=== PATIENT | female | born 1960 | race Two or more races ===

== ENCOUNTER 2020-11-16 02:53 | Inpatient (IN) | payer MEDICARE, MEDICAID ==
[~2020-11-16] VITALS: Ht 160 cm; Wt 90.5 kg
[2020-11-16 04:38] LABS: Basophils # (auto) 0 10 ^3/uL (0-0.2); Basophils % (auto) 0.7 % (0.0-2.0); Eosinophils # (auto) 0.2 10 ^3/uL (0-0.8); Eosinophils % (auto) 2.6 % (0.0-7.0); Hematocrit 31.8 % (36.0-46.0); Hemoglobin 10.7 g/dL (12.2-16.2); Lymphocytes # (auto) 0.8 10 ^3/uL (0.4-5.4); Lymphocytes % (auto) 14.4 % (10.0-50.0); Mean Corpuscular Hemoglobin 30.7 pg (28.0-32.0); Mean Corpuscular Hgb Conc. 33.8 g/dL (32.0-36.0); Mean Corpuscular Volume 90.7 fL (80.0-100.0); Monocytes # (auto) 0.4 10 ^3/uL (0-1.3); Neutrophils # (auto) 4.4 10 ^3/uL (1.6-8.6); Neutrophils % (auto) 75.3 % (37.0-80.0); Red Cell Distribution Width 18.2 % (11.8-14.3); White Blood Cell 5.8 10^3/uL (4.4-10.8)
[2020-11-16 05:07] LABS: Albumin 3.4 g/dL (3.4-5.0); Anion Gap 7 (5-15); Blood Urea Nitrogen 24 mg/dL (7-18); Calcium 7.7 mg/dL (8.5-10.1); Carbon Dioxide 29 mmol/L (21-32); Chloride 99 mmol/L (98-107); Glucose 302 mg/dL (74-106); Magnesium 2.2 mg/dL (1.6-2.6); Potassium 4.2 mmol/L (3.5-5.1); Sodium 135 mmol/L (136-145)
[2020-11-16 05:09] LABS: Alanine Aminotransferase 32 U/L (13-56); Aspartate Aminotransferase 29 U/L (15-37); BUN/Creatinine Ratio 5.8; GFR African American 14 mL/min; GFR Non-African American 12 mL/min
[2020-11-16 05:14] LABS: Alkaline Phosphatase 534 U/L (45-117); Bilirubin, Total 1.6 mg/dL (0.2-1.0); Total Protein 8.4 g/dL (6.4-8.2)
[2020-11-16] MEDS ORDERED: SODIUM CHLORIDE 0.9% 1,000 ML IV ONE (06:45)
[2020-11-16] MEDS ORDERED: ASPirin 81 mg TAB PO ONE (06:45)
[2020-11-16 07:33] LABS: INR 1.04 (0.9-1.15)
[2020-11-16] MEDS ORDERED: MORPHINE SULF INJ 2 MG/ML SYRINGE 1ML IV ONE (08:00)
[2020-11-16] MEDS ORDERED: METOPROLOL TARTRATE 1MG/1ML-5ML VIAL IV ONE (08:00)
[2020-11-16] MEDS ORDERED: FUROSEMIDE 40 MG/4 ML VIAL IV ONE (08:00)
[2020-11-16] MEDS ORDERED: ONDANSETRON HCL 4 MG/2 ML VIAL IV ONE (08:00)
[2020-11-16] MEDS ORDERED: HYDROcodone-ACET 5/325MG TAB PO PRN (11:15)
[2020-11-16] MEDS ORDERED: DEXTROSE (50%) 50ML SYRG IV PRN (11:15)
[2020-11-16] MEDS ORDERED: MORPHINE SULF INJ 2 MG/ML SYRINGE 1ML IV PRN ×2 (11:15)
[2020-11-16] MEDS ORDERED: NITROGLYCERIN 0.4 MG SL TAB SL PRN (11:15)
[2020-11-16] MEDS ORDERED: ACETAMINOPHEN 500 MG TAB PO PRN (11:15)
[2020-11-16] MEDS ORDERED: hydrALAZINE HCL 20 MG/ML VL IV ONE (12:00)
[2020-11-16] MEDS: ACCU-CHEK COMFORT CURVE STRIP VI SCH ×3 (13:14→22:00)
[2020-11-16] MEDS: InsuLIN REG 1unit/0.01ml Soln (100units/ml) SC SCH ×3 (13:21→23:01)
[2020-11-16] MEDS: hydrALAZINE HCL 20 MG/ML VL IV PRN (16:46)
[2020-11-16 17:00] VITALS: BP 159/71
[2020-11-16] MEDS: ONDANSETRON HCL 4 MG/2 ML VIAL IV PRN (17:10)
[2020-11-16] MEDS ORDERED: METO-158 PO (17:12)
[2020-11-16] MEDS ORDERED: ATOR20TA50 PO (17:12)
[2020-11-16] MEDS ORDERED: SUCR1TAB PO (17:12)
[2020-11-16] MEDS ORDERED: DOXY100C2 PO (17:12)
[2020-11-16] MEDS ORDERED: PANT40T PO (17:12)
[2020-11-16] MEDS ORDERED: AMLO-489 PO (17:12)
[2020-11-16] MEDS ORDERED: ASCO500T11 PO (17:12)
[2020-11-16 17:16] VITALS: BP 135/72
[2020-11-16 22:00] VITALS: BP 163/61
[2020-11-16] MEDS: ATORVASTATIN 20 MG TAB PO SCH (23:17)
[2020-11-16] MEDS: METOPROLOL TARTRATE 50 MG TAB PO SCH (23:18)
[2020-11-17 05:00] VITALS: BP 146/57
[2020-11-17] MEDS: InsuLIN REG 1unit/0.01ml Soln (100units/ml) SC SCH ×4 (06:39→21:45)
[2020-11-17] MEDS: ACCU-CHEK COMFORT CURVE STRIP VI SCH ×4 (06:39→21:36)
[2020-11-17 08:27] VITALS: BP 163/71
[2020-11-17] MEDS: amLODIPine BESYLATE 5 MG TAB PO SCH (08:54)
[2020-11-17] MEDS: NITROGLYCERIN 0.4MG/HR TOPICAL PATCH TD SCH (08:55)
[2020-11-17] MEDS: ASPirin-EC 81 mg tab PO SCH (08:55)
[2020-11-17] MEDS: METOPROLOL TARTRATE 50 MG TAB PO SCH ×2 (08:55→22:00)
[2020-11-17] MEDS ORDERED: LISINOPRIL 10 MG TAB PO SCH (10:00)
[2020-11-17] MEDS ORDERED: ISOSORBIDE MONONITRATE ER 60 MG TAB PO ONE (10:15)
[2020-11-17 13:00] VITALS: BP 139/63
[2020-11-17] MEDS: ATORVASTATIN 20 MG TAB PO SCH (21:36)
[2020-11-17 22:00] VITALS: BP 166/66
[2020-11-17] MEDS: hydrALAZINE HCL 20 MG/ML VL IV PRN (22:56)
[2020-11-18 05:00] VITALS: BP 156/79
[2020-11-18] MEDS: ACCU-CHEK COMFORT CURVE STRIP VI SCH ×4 (06:32→21:28)
[2020-11-18] MEDS: InsuLIN REG 1unit/0.01ml Soln (100units/ml) SC SCH ×4 (06:36→21:28)
[2020-11-18] MEDS ORDERED: SODIUM CHL 0.9% 1000 ML BAG XX ONE (07:00)
[2020-11-18 07:54] LABS: Basophils # (auto) 0.1 10 ^3/uL (0-0.2); Basophils % (auto) 1.4 % (0.0-2.0); Eosinophils # (auto) 0.1 10 ^3/uL (0-0.8); Eosinophils % (auto) 2.5 % (0.0-7.0); Hematocrit 29.6 % (36.0-46.0); Hemoglobin 9.9 g/dL (12.2-16.2); Lymphocytes # (auto) 0.8 10 ^3/uL (0.4-5.4); Lymphocytes % (auto) 13.5 % (10.0-50.0); Mean Corpuscular Hemoglobin 30.3 pg (28.0-32.0); Mean Corpuscular Hgb Conc. 33.5 g/dL (32.0-36.0); Mean Corpuscular Volume 90.4 fL (80.0-100.0); Monocytes # (auto) 0.4 10 ^3/uL (0-1.3); Monocytes % (auto) 6.9 % (0.0-12.0); Neutrophils # (auto) 4.2 10 ^3/uL (1.6-8.6); Neutrophils % (auto) 75.7 % (37.0-80.0); Red Blood Cells 3.27 10^6/uL (4.0-5.20); White Blood Cell 5.6 10^3/uL (4.4-10.8)
[2020-11-18 08:11] LABS: Calcium 7.7 mg/dL (8.5-10.1)
[2020-11-18 08:14] LABS: Bilirubin, Total 1.2 mg/dL (0.2-1.0); Total Protein 7.4 g/dL (6.4-8.2)
[2020-11-18 08:18] LABS: Potassium 5.6 mmol/L (3.5-5.1)
[2020-11-18] MEDS ORDERED: ADENOSINE 76 MG in GIVE UN-DILUTED 0 ML IV STA (08:21)
[2020-11-18 09:00] VITALS: BP 163/67
[2020-11-18 09:20] VITALS: BP 163/67
[2020-11-18] MEDS: DAKINS QUARTER STR 0.125% (NaHypochlorite) 473 ML TOPICAL SOL TOP SCH (10:00)
[2020-11-18] MEDS: ASPirin-EC 81 mg tab PO SCH (12:39)
[2020-11-18] MEDS: ISOSORBIDE MONONITRATE ER 60 MG TAB PO SCH (12:39)
[2020-11-18] MEDS: METOPROLOL TARTRATE 50 MG TAB PO SCH ×2 (12:40→21:32)
[2020-11-18] MEDS: amLODIPine BESYLATE 5 MG TAB PO SCH (12:40)
[2020-11-18] MEDS: NITROGLYCERIN 0.4MG/HR TOPICAL PATCH TD SCH (12:41)
[2020-11-18 13:00] VITALS: BP 159/67
[2020-11-18] MEDS: SODIUM ZIRCONIUM CYCL 10 GM PAK PO SCH ×2 (14:00→21:46)
[2020-11-18 16:50] VITALS: BP 140/56
[2020-11-18] MEDS ORDERED: EPOETIN ALFA-EPBX 10,000 UNIT/1ML VIAL SC ONE (21:00)
[2020-11-18] MEDS: ATORVASTATIN 20 MG TAB PO SCH (21:27)
[2020-11-18 21:31] LABS: BUN/Creatinine Ratio 5.4; Calcium 7.6 mg/dL (8.5-10.1); Potassium 5.3 mmol/L (3.5-5.1)
[2020-11-18 21:34] LABS: Bilirubin, Total 1.3 mg/dL (0.2-1.0); Total Protein 7.8 g/dL (6.4-8.2)
[2020-11-18 22:00] VITALS: BP_SYST 146; BP_SYST 156; BP_DIAS 54; BP_DIAS 72
[2020-11-19] VITALS (7 sets, daily range): BP systolic 134–179; BP diastolic 54–74
[2020-11-19] MEDS: SODIUM ZIRCONIUM CYCL 10 GM PAK PO SCH ×3 (05:58→21:59)
[2020-11-19] MEDS: InsuLIN REG 1unit/0.01ml Soln (100units/ml) SC SCH ×4 (06:31→22:00)
[2020-11-19] MEDS: ACCU-CHEK COMFORT CURVE STRIP VI SCH ×4 (06:31→21:59)
[2020-11-19 07:03] LABS: Basophils # (auto) 0 10 ^3/uL (0-0.2); Basophils % (auto) 0.9 % (0.0-2.0); Eosinophils # (auto) 0.1 10 ^3/uL (0-0.8); Eosinophils % (auto) 2.5 % (0.0-7.0); Hematocrit 31.5 % (36.0-46.0); Hemoglobin 10.6 g/dL (12.2-16.2); Lymphocytes # (auto) 0.9 10 ^3/uL (0.4-5.4); Lymphocytes % (auto) 16.1 % (10.0-50.0); Mean Corpuscular Hemoglobin 30.7 pg (28.0-32.0); Mean Corpuscular Hgb Conc. 33.6 g/dL (32.0-36.0); Mean Corpuscular Volume 91.6 fL (80.0-100.0); Monocytes # (auto) 0.5 10 ^3/uL (0-1.3); Monocytes % (auto) 8.5 % (0.0-12.0); Nucleated Red Blood Cells % 0.1 %; Red Blood Cells 3.44 10^6/uL (4.0-5.20); Red Cell Distribution Width 17.4 % (11.8-14.3); White Blood Cell 5.6 10^3/uL (4.4-10.8)
[2020-11-19 07:20] LABS: Potassium 5.2 mmol/L (3.5-5.1)
[2020-11-19 07:24] LABS: BUN/Creatinine Ratio 6.2; Calcium 7.8 mg/dL (8.5-10.1)
[2020-11-19] MEDS ORDERED: ADENOSINE 74 MG in GIVE UN-DILUTED 0 ML IV STA (08:30)
[2020-11-19] MEDS: DAKINS QUARTER STR 0.125% (NaHypochlorite) 473 ML TOPICAL SOL TOP SCH (10:00)
[2020-11-19] MEDS: ASPirin-EC 81 mg tab PO SCH (11:26)
[2020-11-19] MEDS: METOPROLOL TARTRATE 50 MG TAB PO SCH ×2 (11:26→21:59)
[2020-11-19] MEDS: amLODIPine BESYLATE 5 MG TAB PO SCH (11:27)
[2020-11-19] MEDS: ISOSORBIDE MONONITRATE ER 60 MG TAB PO SCH (11:27)
[2020-11-19] MEDS: NITROGLYCERIN 0.4MG/HR TOPICAL PATCH TD SCH (11:28)
[2020-11-19] MEDS: hydrALAZINE HCL 20 MG/ML VL IV PRN (18:22)
[2020-11-19] MEDS: ATORVASTATIN 20 MG TAB PO SCH (21:59)
[2020-11-20] VITALS (10 sets, daily range): BP systolic 135–175; BP diastolic 54–83
[2020-11-20] MEDS: ONDANSETRON HCL 4 MG/2 ML VIAL IV PRN (05:15)
[2020-11-20] MEDS: SODIUM ZIRCONIUM CYCL 10 GM PAK PO SCH ×3 (06:00→21:50)
[2020-11-20] MEDS: ACCU-CHEK COMFORT CURVE STRIP VI SCH ×4 (06:13→21:50)
[2020-11-20] MEDS: InsuLIN REG 1unit/0.01ml Soln (100units/ml) SC SCH ×4 (06:13→21:56)
[2020-11-20] MEDS: hydrALAZINE HCL 20 MG/ML VL IV PRN (06:15)
[2020-11-20 07:17] LABS: Basophils # (auto) 0.1 10 ^3/uL (0-0.2); Basophils % (auto) 1.2 % (0.0-2.0); Eosinophils # (auto) 0.1 10 ^3/uL (0-0.8); Eosinophils % (auto) 2.2 % (0.0-7.0); Hematocrit 31.8 % (36.0-46.0); Hemoglobin 10.5 g/dL (12.2-16.2); Lymphocytes # (auto) 0.9 10 ^3/uL (0.4-5.4); Lymphocytes % (auto) 17.3 % (10.0-50.0); Mean Corpuscular Hemoglobin 29.9 pg (28.0-32.0); Mean Corpuscular Hgb Conc. 33.1 g/dL (32.0-36.0); Mean Corpuscular Volume 90.4 fL (80.0-100.0); Monocytes # (auto) 0.5 10 ^3/uL (0-1.3); Monocytes % (auto) 8.6 % (0.0-12.0); Neutrophils # (auto) 3.8 10 ^3/uL (1.6-8.6); Neutrophils % (auto) 70.7 % (37.0-80.0); Nucleated Red Blood Cells % 0.2 %; Red Blood Cells 3.51 10^6/uL (4.0-5.20); Red Cell Distribution Width 17.9 % (11.8-14.3); White Blood Cell 5.3 10^3/uL (4.4-10.8)
[2020-11-20 07:30] LABS: BUN/Creatinine Ratio 5.9; Calcium 7.5 mg/dL (8.5-10.1)
[2020-11-20 07:31] LABS: INR 1.07 (0.9-1.15); Partial Thromboplastin Time 29.3 sec (23.0-31.2)
[2020-11-20 07:33] LABS: Potassium 5.6 mmol/L (3.5-5.1)
[2020-11-20] MEDS: DAKINS QUARTER STR 0.125% (NaHypochlorite) 473 ML TOPICAL SOL TOP SCH (10:00)
[2020-11-20] MEDS: ASPirin-EC 81 mg tab PO SCH (10:23)
[2020-11-20] MEDS: ISOSORBIDE MONONITRATE ER 60 MG TAB PO SCH (10:24)
[2020-11-20] MEDS: METOPROLOL TARTRATE 50 MG TAB PO SCH ×2 (10:24→21:56)
[2020-11-20] MEDS: NITROGLYCERIN 0.4MG/HR TOPICAL PATCH TD SCH (10:25)
[2020-11-20] MEDS: amLODIPine BESYLATE 5 MG TAB PO SCH (10:25)
[2020-11-20] MEDS ORDERED: LIDOCAINE 2%HCL (LOCAL ANESTH.) INJ 20ML MDV ONE (13:55)
[2020-11-20] MEDS ORDERED: fentaNYL CITRATE 100 MCG/2 ML VL ONE (14:43)
[2020-11-20] MEDS ORDERED: IODIXANOL 320MG/ML 100ML BTL IV ONE (14:43)
[2020-11-20] MEDS ORDERED: MIDAZOLAM HCL 2MG/2ML 2ml VIAL (1mg/ml) ONE (14:43)
[2020-11-20] MEDS ORDERED: ANGIOMAX 250 MG VIAL IV ONE (14:43)
[2020-11-20] MEDS ORDERED: SODIUM CHL 0.9% 0 ML ONE (14:43)
[2020-11-20] MEDS ORDERED: HEPARIN SODIUM (PORCINE) 5000 UNITS/ML 1ML VIAL ONE (14:44)
[2020-11-20] MEDS ORDERED: VERAPAMIL 2.5MG/ML INJ 2ML VIAL IV ONE (14:44)
[2020-11-20] MEDS: ATORVASTATIN 20 MG TAB PO SCH (21:49)
[2020-11-20] MEDS ORDERED: DOCUSATE SOD 100 MG CAP PO PRN (22:45)
[2020-11-21 05:00] VITALS: BP 162/67
[2020-11-21] MEDS: SODIUM ZIRCONIUM CYCL 10 GM PAK PO SCH (05:47)
[2020-11-21] MEDS: hydrALAZINE HCL 20 MG/ML VL IV PRN (05:47)
[2020-11-21] MEDS: InsuLIN REG 1unit/0.01ml Soln (100units/ml) SC SCH ×2 (06:06→11:30)
[2020-11-21] MEDS: ACCU-CHEK COMFORT CURVE STRIP VI SCH ×2 (06:06→11:42)
[2020-11-21] MEDS ORDERED: SODIUM CHL 0.9% 1000 ML BAG XX ONE (07:00)
[2020-11-21 08:26] LABS: Basophils # (auto) 0.1 10 ^3/uL (0-0.2); Basophils % (auto) 1.1 % (0.0-2.0); Eosinophils # (auto) 0.1 10 ^3/uL (0-0.8); Eosinophils % (auto) 1.9 % (0.0-7.0); Hematocrit 34.6 % (36.0-46.0); Hemoglobin 11.3 g/dL (12.2-16.2); Lymphocytes # (auto) 1.1 10 ^3/uL (0.4-5.4); Mean Corpuscular Hemoglobin 29.7 pg (28.0-32.0); Mean Corpuscular Hgb Conc. 32.7 g/dL (32.0-36.0); Mean Corpuscular Volume 90.7 fL (80.0-100.0); Monocytes # (auto) 0.5 10 ^3/uL (0-1.3); Monocytes % (auto) 8.6 % (0.0-12.0); Neutrophils # (auto) 4.2 10 ^3/uL (1.6-8.6); Neutrophils % (auto) 70.4 % (37.0-80.0); Nucleated Red Blood Cells % 0.1 %; Red Blood Cells 3.82 10^6/uL (4.0-5.20); Red Cell Distribution Width 18.1 % (11.8-14.3); White Blood Cell 5.9 10^3/uL (4.4-10.8)
[2020-11-21 08:51] VITALS: BP 170/52
[2020-11-21] MEDS: NITROGLYCERIN 0.4MG/HR TOPICAL PATCH TD SCH (11:42)
[2020-11-21 12:53] VITALS: BP 167/72
[2020-11-21] MEDS: ASPirin-EC 81 mg tab PO SCH (14:24)
[2020-11-21] MEDS: ISOSORBIDE MONONITRATE ER 60 MG TAB PO SCH (14:25)
[2020-11-21] MEDS: DAKINS QUARTER STR 0.125% (NaHypochlorite) 473 ML TOPICAL SOL TOP SCH (14:25)
[2020-11-21] MEDS: METOPROLOL TARTRATE 50 MG TAB PO SCH (14:25)
[2020-11-21 17:33] VITALS: BP 161/60
[2020-11-21] MEDS ORDERED: EPOETIN ALFA-EPBX 10,000 UNIT/1ML VIAL SC ONE (21:00)
== END 2020-11-21 18:00 | disposition home health service (06) | DRG 286 ==
LOC: ER 02:53 → TELE 11:15 → TELE-WESTW 15:44
PROVIDERS: ADMIT Nurse Practitioner Acute Care; ATTEND Internal Medicine
PROC: 5A1D70Z Performance of Urinary Filtration, Intermittent, Less than 6 Hours Per Day (ICD-10-PCS; 2020-11-18)
PROC: 4A023N7 Measurement of Cardiac Sampling and Pressure, Left Heart, Percutaneous Approach (ICD-10-PCS; principal; 2020-11-20)
PROC: B211YZZ Fluoroscopy of Multiple Coronary Arteries using Other Contrast (ICD-10-PCS; 2020-11-20)
PROC: B215YZZ Fluoroscopy of Left Heart using Other Contrast (ICD-10-PCS; 2020-11-20)
DX: I25.110 Atherosclerotic heart disease of native coronary artery with unstable angina pectoris (principal); N18.6 End stage renal disease; I50.33 Acute on chronic diastolic (congestive) heart failure; I13.2 Hypertensive heart and chronic kidney disease with heart failure and with stage 5 chronic kidney disease, or end stage renal disease; E87.1 Hypo-osmolality and hyponatremia; Z20.822 Contact with and (suspected) exposure to COVID-19; D63.1 Anemia in chronic kidney disease; L97.519 Non-pressure chronic ulcer of other part of right foot with unspecified severity; I16.0 Hypertensive urgency; E66.9 Obesity, unspecified; E11.621 Type 2 diabetes mellitus with foot ulcer; E87.5 Hyperkalemia; E11.22 Type 2 diabetes mellitus with diabetic chronic kidney disease; I49.5 Sick sinus syndrome; K21.9 Gastro-esophageal reflux disease without esophagitis; M21.961 Unspecified acquired deformity of right lower leg; E78.5 Hyperlipidemia, unspecified; Z95.0 Presence of cardiac pacemaker; Z88.5 Allergy status to narcotic agent; Z68.35 Body mass index [BMI] 35.0-35.9, adult; Z87.11 Personal history of peptic ulcer disease; Z90.49 Acquired absence of other specified parts of digestive tract; Z99.2 Dependence on renal dialysis; Z79.899 Other long term (current) drug therapy; Z79.84 Long term (current) use of oral hypoglycemic drugs; Z79.4 Long term (current) use of insulin; Z95.5 Presence of coronary angioplasty implant and graft; Z83.3 Family history of diabetes mellitus; Z82.49 Family history of ischemic heart disease and other diseases of the circulatory system; E11.65 Type 2 diabetes mellitus with hyperglycemia
CPT/HCPCS: 36415; 71045; 71046; 78452; 80048; 80053; 82306; 82962; 83036; 83735; 83880; 83970; 84100; 84443; 84484; 85025; 85049; 85610; 85730; 86141; 86850; 86900; 86901; 87340; 87426; 90935; 93005; 93017; 93306; 93458; 96361; 96374; 96375; 99152; G0378; J0153; J1642; J1815; J2250; J2405; Q9967

== ENCOUNTER → 2021-06-05 | Outpatient (CLI) | payer MEDICARE, MEDICAID ==
[~2021-06-05] MED LIST: AMLO-489 PO; ASCO500T11 PO; ATOR20TA50 PO; DOXY100C2 PO; METO-158 PO; PANT40T PO; SUCR1TAB PO
== END | disposition home or self-care (01) ==
LOC: LAB 09:43
PROVIDERS: ATTEND Podiatrist
DX: E11.621 Type 2 diabetes mellitus with foot ulcer (principal)
CPT/HCPCS: 36415; 83036

== ENCOUNTER → 2021-06-23 | Outpatient (CLI) | payer MEDICARE, MEDICAID ==
[2021-06-23 10:26] LABS: Albumin 3.6 g/dL (3.4-5.0); BUN/Creatinine Ratio 9.1; Bilirubin, Total 0.5 mg/dL (0.2-1.0); Calcium 7.5 mg/dL (8.5-10.1); Total Protein 7.8 g/dL (6.4-8.2)
[2021-06-23 11:01] LABS: Potassium 6.2 mmol/L (3.5-5.1)
== END | disposition home or self-care (01) ==
LOC: LAB 08:55
PROVIDERS: ATTEND Podiatrist
DX: E11.621 Type 2 diabetes mellitus with foot ulcer (principal)
CPT/HCPCS: 36415; 80053; 83036

== ENCOUNTER → 2021-10-28 | Outpatient (CLI) | payer MEDICARE, MEDICAID | END | disposition home or self-care (01) | LOC: XY 08:56 | PROVIDERS: ATTEND Podiatrist | DX: I70.203 Unspecified atherosclerosis of native arteries of extremities, bilateral legs (principal); E11.621 Type 2 diabetes mellitus with foot ulcer | CPT/HCPCS: 93925 ==

== ENCOUNTER 2022-02-04 10:56 | Inpatient (IN) | payer MEDICARE, MEDICAID ==
[~2022-02-04] VITALS: Ht 160 cm; Wt 87.5 kg
[2022-02-04] MEDS ORDERED: cloNIDine HCL 0.1 MG TAB PO ONE (11:45)
[2022-02-04 12:44] LABS: Basophils # (auto) 0.1 10 ^3/uL (0-0.2); Basophils % (auto) 1.2 % (0.0-2.0); Eosinophils # (auto) 0.2 10 ^3/uL (0-0.8); Eosinophils % (auto) 3.8 % (0.0-7.0); Hematocrit 36.2 % (36.0-46.0); Hemoglobin 11.7 g/dL (12.2-16.2); Lymphocytes # (auto) 1.3 10 ^3/uL (0.4-5.4); Mean Corpuscular Hemoglobin 30.6 pg (28.0-32.0); Mean Corpuscular Hgb Conc. 32.4 g/dL (32.0-36.0); Mean Corpuscular Volume 94.6 fL (80.0-100.0); Monocytes # (auto) 0.4 10 ^3/uL (0-1.3); Monocytes % (auto) 5.7 % (0.0-12.0); Neutrophils # (auto) 4.4 10 ^3/uL (1.6-8.6); Neutrophils % (auto) 68.3 % (37.0-80.0); Red Blood Cells 3.83 10^6/uL (4.0-5.20); Red Cell Distribution Width 14.9 % (11.8-14.3); White Blood Cell 6.4 10^3/uL (4.4-10.8)
[2022-02-04 13:08] LABS: Albumin 3.8 g/dL (3.4-5.0); Calcium 7.6 mg/dL (8.5-10.1)
[2022-02-04 13:18] LABS: Bilirubin, Total 0.9 mg/dL (0.2-1.0); Total Protein 8.2 g/dL (6.4-8.2)
[2022-02-04 13:19] LABS: Potassium 5.8 mmol/L (3.5-5.1)
[2022-02-04 13:22] LABS: BUN/Creatinine Ratio 7.3
[2022-02-04] MEDS ORDERED: HYDROcodone-ACET 5/325MG TAB PO PRN (15:00)
[2022-02-04] MEDS ORDERED: DOCUSATE SOD 100 MG CAP PO PRN (15:00)
[2022-02-04] MEDS ORDERED: SODIUM ZIRCONIUM CYCL 10 GM PAK PO ONE (15:00)
[2022-02-05] MEDS: ACETAMINOPHEN 325 MG TAB PO PRN ×2 (04:23→11:32)
[2022-02-05 05:10] LABS: Basophils # (auto) 0.1 10 ^3/uL (0-0.2); Basophils % (auto) 1.2 % (0.0-2.0); Eosinophils # (auto) 0.3 10 ^3/uL (0-0.8); Eosinophils % (auto) 5.4 % (0.0-7.0); Hematocrit 33.8 % (36.0-46.0); Hemoglobin 11.2 g/dL (12.2-16.2); Lymphocytes # (auto) 1.7 10 ^3/uL (0.4-5.4); Lymphocytes % (auto) 28.6 % (10.0-50.0); Mean Corpuscular Hemoglobin 31.3 pg (28.0-32.0); Mean Corpuscular Hgb Conc. 33.1 g/dL (32.0-36.0); Mean Corpuscular Volume 94.6 fL (80.0-100.0); Monocytes # (auto) 0.3 10 ^3/uL (0-1.3); Monocytes % (auto) 5.5 % (0.0-12.0); Neutrophils # (auto) 3.4 10 ^3/uL (1.6-8.6); Neutrophils % (auto) 59.3 % (37.0-80.0); Nucleated Red Blood Cells % 0.1 %; Red Blood Cells 3.57 10^6/uL (4.0-5.20); White Blood Cell 5.8 10^3/uL (4.4-10.8)
[2022-02-05 05:27] LABS: Albumin 3.5 g/dL (3.4-5.0); Calcium 7.3 mg/dL (8.5-10.1)
[2022-02-05 05:29] LABS: BUN/Creatinine Ratio 7.5; Bilirubin, Total 0.7 mg/dL (0.2-1.0); Total Protein 7.9 g/dL (6.4-8.2)
[2022-02-05 08:55] VITALS: BP_SYST 175; BP_SYST 203; BP_DIAS 59; BP_DIAS 72
[2022-02-05 09:00] VITALS: BP 203/72
[2022-02-05 09:30] VITALS: BP 204/67
[2022-02-05] MEDS ORDERED: NIFEdipine ER 30 MG TAB PO SCH (10:00)
[2022-02-05] MEDS ORDERED: amLODIPine BESYLATE 5 MG TAB PO ONE (11:30)
[2022-02-05] MEDS ORDERED: METOPROLOL TARTRATE 50 MG TAB PO ONE (11:30)
[2022-02-05] MEDS ORDERED: DEXTROSE (50%) 50ML SYRG IV PRN (12:00)
[2022-02-05] MEDS: ACCU-CHEK COMFORT CURVE STRIP VI SCH ×3 (12:29→21:18)
[2022-02-05] MEDS: InsuLIN REG 1unit/0.01ml Soln (100units/ml) SC SCH ×3 (12:39→21:51)
[2022-02-05 13:00] VITALS: BP 196/59
[2022-02-05] MEDS: hydrALAZINE HCL 25 MG TAB PO SCH ×2 (14:54→21:17)
[2022-02-05] MEDS ORDERED: cloNIDine HCL 0.1 MG TAB PO PRN (16:45)
[2022-02-05] MEDS ORDERED: ASPirin 81 mg TAB PO ONE (16:45)
[2022-02-05 17:00] VITALS: BP 137/53
[2022-02-05] MEDS: ATORVASTATIN 20 MG TAB PO SCH (21:16)
[2022-02-05] MEDS: METOPROLOL TARTRATE 50 MG TAB PO SCH (21:17)
[2022-02-05 22:00] VITALS: BP 123/43
[2022-02-05] MEDS ORDERED: ATORVASTATIN 20 MG TAB PO SCH (22:00)
[2022-02-06] VITALS (7 sets, daily range): BP systolic 137–178; BP diastolic 58–85
[2022-02-06 00:08] LABS: INR 1.02 (0.9-1.15); Partial Thromboplastin Time 33.4 sec (24.6-33.4)
[2022-02-06] MEDS: hydrALAZINE HCL 25 MG TAB PO SCH ×4 (05:31→21:38)
[2022-02-06 05:49] LABS: Basophils # (auto) 0 10 ^3/uL (0-0.2); Basophils % (auto) 0.7 % (0.0-2.0); Eosinophils # (auto) 0.2 10 ^3/uL (0-0.8); Eosinophils % (auto) 3.5 % (0.0-7.0); Hematocrit 33.3 % (36.0-46.0); Lymphocytes # (auto) 1.5 10 ^3/uL (0.4-5.4); Lymphocytes % (auto) 22.8 % (10.0-50.0); Mean Corpuscular Hemoglobin 30.9 pg (28.0-32.0); Mean Corpuscular Volume 93.8 fL (80.0-100.0); Monocytes # (auto) 0.3 10 ^3/uL (0-1.3); Monocytes % (auto) 4.8 % (0.0-12.0); Neutrophils # (auto) 4.5 10 ^3/uL (1.6-8.6); Neutrophils % (auto) 68.2 % (37.0-80.0); Nucleated Red Blood Cells % 0.1 %; Red Blood Cells 3.55 10^6/uL (4.0-5.20); Red Cell Distribution Width 15.1 % (11.8-14.3); White Blood Cell 6.6 10^3/uL (4.4-10.8)
[2022-02-06 06:04] LABS: BUN/Creatinine Ratio 7.8; Calcium 6.8 mg/dL (8.5-10.1); Potassium 5.2 mmol/L (3.5-5.1)
[2022-02-06 06:05] LABS: Partial Thromboplastin Time 33.5 sec (24.6-33.4)
[2022-02-06] MEDS: ACCU-CHEK COMFORT CURVE STRIP VI SCH ×4 (06:14→21:54)
[2022-02-06] MEDS: InsuLIN REG 1unit/0.01ml Soln (100units/ml) SC SCH ×4 (06:15→21:53)
[2022-02-06] MEDS ORDERED: SODIUM CHL 0.9% 1000 ML BAG XX ONE (07:00)
[2022-02-06] MEDS: METOPROLOL TARTRATE 50 MG TAB PO SCH ×2 (10:00→21:38)
[2022-02-06] MEDS: amLODIPine BESYLATE 5 MG TAB PO SCH (10:00)
[2022-02-06] MEDS ORDERED: LOSARTAN POTASSIUM 50 MG TAB PO SCH (10:00)
[2022-02-06] MEDS: ASPirin 81 mg TAB PO SCH (10:00)
[2022-02-06] MEDS ORDERED: LIDOCAINE 2%HCL (LOCAL ANESTH.) INJ 20ML MDV ONE (15:04)
[2022-02-06] MEDS ORDERED: IOHEXOL 350 MG/ML 100ML IJ ONE (15:04)
[2022-02-06] MEDS ORDERED: ANGIOMAX 250 MG VIAL IV ONE (15:08)
[2022-02-06] MEDS ORDERED: fentaNYL CITRATE 100 MCG/2 ML VL ONE (15:08)
[2022-02-06] MEDS ORDERED: SODIUM CHL 0.9% 0 ML ONE (15:09)
[2022-02-06] MEDS ORDERED: MIDAZOLAM HCL 2MG/2ML 2ml VIAL (1mg/ml) ONE (15:09)
[2022-02-06] MEDS ORDERED: hydrALAZINE HCL 20 MG/ML VL ONE (15:25)
[2022-02-06] MEDS: ATORVASTATIN 20 MG TAB PO SCH (21:36)
[2022-02-06] MEDS: DAKINS HALF STR 0.25% (NaHypochlorite) 473 ML TOPICAL SOL TOP SCH (22:00)
[2022-02-07 00:24] VITALS: BP 178/85
[2022-02-07] MEDS: ACETAMINOPHEN 325 MG TAB PO PRN (04:55)
[2022-02-07 05:15] VITALS: BP 159/62
[2022-02-07] MEDS: hydrALAZINE HCL 25 MG TAB PO SCH ×2 (06:11→13:47)
[2022-02-07] MEDS: ACCU-CHEK COMFORT CURVE STRIP VI SCH ×2 (06:12→12:44)
[2022-02-07] MEDS: InsuLIN REG 1unit/0.01ml Soln (100units/ml) SC SCH ×2 (06:13→12:44)
[2022-02-07 08:00] VITALS: BP 156/63
[2022-02-07] MEDS: amLODIPine BESYLATE 5 MG TAB PO SCH (09:25)
[2022-02-07] MEDS: ASPirin 81 mg TAB PO SCH (09:25)
[2022-02-07] MEDS: METOPROLOL TARTRATE 50 MG TAB PO SCH (09:26)
[2022-02-07] MEDS: DAKINS HALF STR 0.25% (NaHypochlorite) 473 ML TOPICAL SOL TOP SCH (09:28)
[2022-02-07] MEDS ORDERED: AMLO-496 PO (10:49)
[2022-02-07] MEDS ORDERED: METO-158 PO (10:49)
[2022-02-07 12:15] VITALS: BP 184/70
[2022-02-07 13:00] VITALS: BP 156/63
== END 2022-02-07 13:45 | disposition home or self-care (01) | DRG 640 ==
LOC: ER 10:56 → TELE 14:48 → TELE-WESTW 02-05 08:54
PROVIDERS: ADMIT Internal Medicine; ATTEND Family Medicine
PROC: 5A1D70Z Performance of Urinary Filtration, Intermittent, Less than 6 Hours Per Day (ICD-10-PCS; principal; 2022-02-06)
PROC: B41G1ZZ Fluoroscopy of Left Lower Extremity Arteries using Low Osmolar Contrast (ICD-10-PCS; 2022-02-06)
PROC: B41F1ZZ Fluoroscopy of Right Lower Extremity Arteries using Low Osmolar Contrast (ICD-10-PCS; 2022-02-06)
DX: E87.5 Hyperkalemia (principal); N18.6 End stage renal disease; I50.30 Unspecified diastolic (congestive) heart failure; I13.2 Hypertensive heart and chronic kidney disease with heart failure and with stage 5 chronic kidney disease, or end stage renal disease; I16.0 Hypertensive urgency; D63.1 Anemia in chronic kidney disease; E11.22 Type 2 diabetes mellitus with diabetic chronic kidney disease; E11.621 Type 2 diabetes mellitus with foot ulcer; E78.00 Pure hypercholesterolemia, unspecified; E11.51 Type 2 diabetes mellitus with diabetic peripheral angiopathy without gangrene; E83.41 Hypermagnesemia; E11.40 Type 2 diabetes mellitus with diabetic neuropathy, unspecified; L08.9 Local infection of the skin and subcutaneous tissue, unspecified; K21.9 Gastro-esophageal reflux disease without esophagitis; E87.8 Other disorders of electrolyte and fluid balance, not elsewhere classified; Z20.822 Contact with and (suspected) exposure to COVID-19; I25.10 Atherosclerotic heart disease of native coronary artery without angina pectoris; L97.519 Non-pressure chronic ulcer of other part of right foot with unspecified severity; Z79.4 Long term (current) use of insulin; Z88.5 Allergy status to narcotic agent; Z82.49 Family history of ischemic heart disease and other diseases of the circulatory system; Z83.3 Family history of diabetes mellitus; Z86.74 Personal history of sudden cardiac arrest; Z95.0 Presence of cardiac pacemaker; Z98.61 Coronary angioplasty status; Z99.2 Dependence on renal dialysis; Z90.49 Acquired absence of other specified parts of digestive tract; Z91.15 Patient's noncompliance with renal dialysis
CPT/HCPCS: 36415; 70450; 71046; 75716; 80048; 80053; 82306; 82962; 83036; 83735; 83880; 83970; 84100; 84484; 85025; 85610; 85730; 90935; 93005; 93306; 93926; 99152; 99291; G0378; J1815; J2250

== ENCOUNTER 2022-03-21 07:32 | Inpatient (IN) | payer MEDICARE, MEDICAID ==
[~2022-03-21] VITALS: Ht 152.4 cm; Wt 98.3 kg
[~2022-03-21 07:32] MED LIST changes: +AMLO-496 PO
[2022-03-21 08:32] LABS: Basophils # (auto) 0.1 10 ^3/uL (0-0.2); Basophils % (auto) 0.7 % (0.0-2.0); Eosinophils # (auto) 0.1 10 ^3/uL (0-0.8); Eosinophils % (auto) 0.5 % (0.0-7.0); Hematocrit 32.4 % (36.0-46.0); Hemoglobin 10.8 g/dL (12.2-16.2); Lymphocytes % (auto) 10.1 % (10.0-50.0); Mean Corpuscular Hemoglobin 32.2 pg (28.0-32.0); Mean Corpuscular Hgb Conc. 33.5 g/dL (32.0-36.0); Mean Corpuscular Volume 96.2 fL (80.0-100.0); Monocytes # (auto) 0.6 10 ^3/uL (0-1.3); Monocytes % (auto) 5.6 % (0.0-12.0); Neutrophils # (auto) 8.4 10 ^3/uL (1.6-8.6); Neutrophils % (auto) 83.1 % (37.0-80.0); Red Blood Cells 3.36 10^6/uL (4.0-5.20); Red Cell Distribution Width 14.7 % (11.8-14.3); White Blood Cell 10.1 10^3/uL (4.4-10.8)
[2022-03-21] MEDS ORDERED: MORPHINE SULFATE 4 MG/ML SYR/VIAL IV ONE (08:45)
[2022-03-21] MEDS ORDERED: ACETAMINOPHEN 500 MG TAB PO ONE (08:45)
[2022-03-21] MEDS ORDERED: ONDANSETRON HCL 4 MG/2 ML VIAL IV ONE (08:45)
[2022-03-21 08:46] LABS: INR 1.02 (0.9-1.15); Partial Thromboplastin Time 24.8 sec (24.6-33.4)
[2022-03-21 10:24] LABS: Albumin 3.1 g/dL (3.4-5.0); Calcium 8.4 mg/dL (8.5-10.1)
[2022-03-21 10:27] LABS: BUN/Creatinine Ratio 6.6; Bilirubin, Total 1.2 mg/dL (0.2-1.0); Total Protein 7.8 g/dL (6.4-8.2)
[2022-03-21] MEDS ORDERED: VANCOMYCIN PER PHARMACY 0 MG IV SCH (10:30)
[2022-03-21] MEDS ORDERED: PIPERACILLIN-TAZO 4.5GM 100 ML IV ONE (10:30)
[2022-03-21] MEDS ORDERED: VANCOMYCIN 1GM/250ML 250 ML IV ONE (11:15)
[2022-03-21] MEDS ORDERED: ACETAMINOPHEN 500 MG TAB PO PRN (12:45)
[2022-03-21] MEDS ORDERED: HYDROcodone-ACET 5/325MG TAB PO PRN (14:00)
[2022-03-21] MEDS ORDERED: HYDROmorphone HCL 2 MG/ML VL/or syr IV PRN (14:00)
[2022-03-21] MEDS ORDERED: ONDANSETRON HCL 4 MG/2 ML VIAL IV PRN (14:00)
[2022-03-21] MEDS ORDERED: ACETAMINOPHEN 325 MG TAB PO PRN (14:00)
[2022-03-21] MEDS ORDERED: DOCUSATE SOD 100 MG CAP PO PRN (14:00)
[2022-03-21] MEDS: HEPARIN SODIUM (PORCINE) 5000 UNITS/ML 1ML VIAL SC SCH ×2 (14:18→23:32)
[2022-03-21] MEDS: hydrALAZINE HCL 20 MG/ML VL IV PRN (14:19)
[2022-03-21] MEDS: SODIUM CHLOR 0.9% PF (SALINE LOCK) 10ML VIAL/SYR IV SCH ×2 (14:19→22:56)
[2022-03-21] MEDS ORDERED: DEXTROSE (50%) 50ML SYRG IV PRN (14:30)
[2022-03-21] MEDS ORDERED: METOPROLOL TARTRATE 50 MG TAB PO ONE (16:00)
[2022-03-21] MEDS: ACCU-CHEK COMFORT CURVE STRIP VI SCH ×2 (17:11→22:52)
[2022-03-21] MEDS: InsuLIN REG 1unit/0.01ml Soln (100units/ml) SC SCH ×2 (17:52→22:55)
[2022-03-21] MEDS: SUCRALFATE 1 GM TAB PO SCH ×2 (17:53→23:08)
[2022-03-21] MEDS ORDERED: MORPHINE SULFATE INJ 2 MG/ml SYRG ONE (18:07)
[2022-03-21] MEDS: ONDANSETRON HCL 4 MG/2 ML VIAL IV PRN (18:12)
[2022-03-21] MEDS ORDERED: MORPHINE SULFATE INJ 2 MG/ml SYRG IV PRN ×2 (18:15→18:45)
[2022-03-21] MEDS: PIPERACILLIN-TAZOB 2.25GM 50 ML IV SCH (18:27)
[2022-03-21] MEDS ORDERED: NITROGLYCERIN 0.4 MG SL TAB SL PRN (18:45)
[2022-03-21] MEDS: METOPROLOL TARTRATE 50 MG TAB PO SCH (23:02)
[2022-03-21] MEDS: INSULIN LANTUS (GLARGINE) 1 /0.01ml (100units/ml) SC SCH (23:33)
[2022-03-22] MEDS: PIPERACILLIN-TAZOB 2.25GM 50 ML IV SCH ×3 (02:30→18:10)
[2022-03-22 05:07] LABS: Basophils # (auto) 0.1 10 ^3/uL (0-0.2); Basophils % (auto) 0.7 % (0.0-2.0); Eosinophils # (auto) 0.1 10 ^3/uL (0-0.8); Eosinophils % (auto) 1.1 % (0.0-7.0); Hematocrit 27.5 % (36.0-46.0); Hemoglobin 9.5 g/dL (12.2-16.2); Lymphocytes # (auto) 1.3 10 ^3/uL (0.4-5.4); Lymphocytes % (auto) 14.6 % (10.0-50.0); Mean Corpuscular Hemoglobin 32.2 pg (28.0-32.0); Mean Corpuscular Hgb Conc. 34.6 g/dL (32.0-36.0); Mean Corpuscular Volume 93.1 fL (80.0-100.0); Monocytes # (auto) 0.7 10 ^3/uL (0-1.3); Monocytes % (auto) 7.9 % (0.0-12.0); Neutrophils # (auto) 6.8 10 ^3/uL (1.6-8.6); Neutrophils % (auto) 75.7 % (37.0-80.0); Red Blood Cells 2.96 10^6/uL (4.0-5.20); Red Cell Distribution Width 14.4 % (11.8-14.3); White Blood Cell 8.9 10^3/uL (4.4-10.8)
[2022-03-22 05:20] LABS: Albumin 2.7 g/dL (3.4-5.0); BUN/Creatinine Ratio 6.1; Calcium 7.6 mg/dL (8.5-10.1); Phosphorus 2.5 mg/dL (2.5-4.90); Potassium 4.5 mmol/L (3.5-5.1)
[2022-03-22] MEDS: SODIUM CHLOR 0.9% PF (SALINE LOCK) 10ML VIAL/SYR IV SCH ×3 (06:01→22:00)
[2022-03-22] MEDS: HEPARIN SODIUM (PORCINE) 5000 UNITS/ML 1ML VIAL SC SCH ×3 (06:03→22:41)
[2022-03-22] MEDS: ACCU-CHEK COMFORT CURVE STRIP VI SCH ×4 (06:37→22:55)
[2022-03-22] MEDS: SUCRALFATE 1 GM TAB PO SCH ×4 (06:39→22:00)
[2022-03-22] MEDS: InsuLIN REG 1unit/0.01ml Soln (100units/ml) SC SCH ×4 (06:40→22:54)
[2022-03-22] MEDS ORDERED: amLODIPine BESYLATE 5 MG TAB PO SCH ×2 (10:00)
[2022-03-22] MEDS: ATORVASTATIN 20 MG TAB PO SCH (11:46)
[2022-03-22] MEDS: ASCORBIC ACID 500 MG TAB PO SCH (11:46)
[2022-03-22] MEDS: METOPROLOL TARTRATE 50 MG TAB PO SCH ×2 (12:25→22:39)
[2022-03-22] MEDS: PANTOPRAZOLE 40 MG TAB PO SCH (12:32)
[2022-03-22] MEDS: ONDANSETRON HCL 4 MG/2 ML VIAL IV PRN (16:35)
[2022-03-22] MEDS ORDERED: VANCOMYCIN 500 MG in D5W 5% 100 ML IV ONE (18:30)
[2022-03-22] MEDS: INSULIN LANTUS (GLARGINE) 1 /0.01ml (100units/ml) SC SCH (22:55)
[2022-03-23] MEDS: PIPERACILLIN-TAZOB 2.25GM 50 ML IV SCH ×3 (03:00→18:45)
[2022-03-23 04:33] LABS: Basophils # (auto) 0.1 10 ^3/uL (0-0.2); Basophils % (auto) 0.9 % (0.0-2.0); Eosinophils # (auto) 0.3 10 ^3/uL (0-0.8); Eosinophils % (auto) 3.8 % (0.0-7.0); Hematocrit 28.4 % (36.0-46.0); Hemoglobin 9.6 g/dL (12.2-16.2); Lymphocytes # (auto) 1.9 10 ^3/uL (0.4-5.4); Lymphocytes % (auto) 24.1 % (10.0-50.0); Mean Corpuscular Hemoglobin 31.5 pg (28.0-32.0); Mean Corpuscular Hgb Conc. 33.7 g/dL (32.0-36.0); Mean Corpuscular Volume 93.6 fL (80.0-100.0); Monocytes # (auto) 0.6 10 ^3/uL (0-1.3); Monocytes % (auto) 7.5 % (0.0-12.0); Neutrophils % (auto) 63.7 % (37.0-80.0); Red Blood Cells 3.04 10^6/uL (4.0-5.20); Red Cell Distribution Width 14.2 % (11.8-14.3); White Blood Cell 7.9 10^3/uL (4.4-10.8)
[2022-03-23 04:50] LABS: BUN/Creatinine Ratio 6.7; Calcium 7.9 mg/dL (8.5-10.1); Phosphorus 3.8 mg/dL (2.5-4.90); Potassium 4.8 mmol/L (3.5-5.1)
[2022-03-23] MEDS: SODIUM CHLOR 0.9% PF (SALINE LOCK) 10ML VIAL/SYR IV SCH ×3 (05:05→22:13)
[2022-03-23] MEDS ORDERED: hydrALAZINE HCL 20 MG/ML VL IV ONE (05:45)
[2022-03-23] MEDS: HEPARIN SODIUM (PORCINE) 5000 UNITS/ML 1ML VIAL SC SCH ×3 (06:00→22:49)
[2022-03-23] MEDS: InsuLIN REG 1unit/0.01ml Soln (100units/ml) SC SCH ×4 (06:22→22:28)
[2022-03-23] MEDS: ACCU-CHEK COMFORT CURVE STRIP VI SCH ×4 (06:39→22:12)
[2022-03-23] MEDS: SUCRALFATE 1 GM TAB PO SCH ×4 (06:39→22:41)
[2022-03-23] MEDS ORDERED: SODIUM CHL 0.9% 1000 ML BAG XX ONE ×2 (07:00→12:15)
[2022-03-23] MEDS: PANTOPRAZOLE 40 MG TAB PO SCH (10:02)
[2022-03-23] MEDS: ASCORBIC ACID 500 MG TAB PO SCH (10:02)
[2022-03-23] MEDS: ATORVASTATIN 20 MG TAB PO SCH (10:02)
[2022-03-23] MEDS: METOPROLOL TARTRATE 50 MG TAB PO SCH ×2 (10:04→22:41)
[2022-03-23 17:03] VITALS: BP 156/69
[2022-03-23 17:38] VITALS: BP 156/69
[2022-03-23] MEDS ORDERED: EPOETIN ALFA-EPBX 10,000 UNIT/1ML VIAL SC ONE ×2 (21:00)
[2022-03-23 21:48] VITALS: BP 174/71
[2022-03-23] MEDS: INSULIN LANTUS (GLARGINE) 1 /0.01ml (100units/ml) SC SCH (22:40)
[2022-03-24] MEDS: PIPERACILLIN-TAZOB 2.25GM 50 ML IV SCH ×3 (02:55→18:06)
[2022-03-24] MEDS: hydrALAZINE HCL 20 MG/ML VL IV PRN (03:32)
[2022-03-24 04:39] VITALS: BP 174/73
[2022-03-24] MEDS: SODIUM CHLOR 0.9% PF (SALINE LOCK) 10ML VIAL/SYR IV SCH ×2 (06:48→14:44)
[2022-03-24] MEDS: ACCU-CHEK COMFORT CURVE STRIP VI SCH ×3 (07:01→17:28)
[2022-03-24] MEDS: SUCRALFATE 1 GM TAB PO SCH ×3 (07:01→17:28)
[2022-03-24] MEDS: InsuLIN REG 1unit/0.01ml Soln (100units/ml) SC SCH ×3 (07:03→17:31)
[2022-03-24] MEDS: HEPARIN SODIUM (PORCINE) 5000 UNITS/ML 1ML VIAL SC SCH ×2 (07:04→14:44)
[2022-03-24 08:00] VITALS: BP 190/65
[2022-03-24 09:01] VITALS: BP 190/65
[2022-03-24] MEDS: ATORVASTATIN 20 MG TAB PO SCH (10:14)
[2022-03-24] MEDS: METOPROLOL TARTRATE 50 MG TAB PO SCH (10:14)
[2022-03-24] MEDS: ASCORBIC ACID 500 MG TAB PO SCH (10:15)
[2022-03-24] MEDS ORDERED: cloNIDine HCL 0.1 MG TAB PO PRN (10:15)
[2022-03-24] MEDS: PANTOPRAZOLE 40 MG TAB PO SCH (10:15)
[2022-03-24] MEDS ORDERED: LACTULOSE 20Gm/30ML SOLN PO ONE (11:15)
[2022-03-24 13:36] VITALS: BP 178/47
[2022-03-24] MEDS ORDERED: FLEET ENEMA(ADULT) 135 ML PR ONE (15:00)
[2022-03-24 16:47] VITALS: BP 176/70
[2022-03-24 22:15] VITALS: BP 186/62
[2022-03-25] VITALS (8 sets, daily range): BP systolic 148–195; BP diastolic 50–88
[2022-03-25] MEDS: ACCU-CHEK COMFORT CURVE STRIP VI SCH ×4 (00:02→17:29)
[2022-03-25] MEDS: INSULIN LANTUS (GLARGINE) 1 /0.01ml (100units/ml) SC SCH (00:05)
[2022-03-25] MEDS: InsuLIN REG 1unit/0.01ml Soln (100units/ml) SC SCH ×4 (00:09→17:42)
[2022-03-25] MEDS: METOPROLOL TARTRATE 50 MG TAB PO SCH ×2 (00:12→10:19)
[2022-03-25] MEDS: SUCRALFATE 1 GM TAB PO SCH ×4 (00:13→17:50)
[2022-03-25] MEDS: SODIUM CHLOR 0.9% PF (SALINE LOCK) 10ML VIAL/SYR IV SCH ×3 (00:13→14:04)
[2022-03-25] MEDS: HEPARIN SODIUM (PORCINE) 5000 UNITS/ML 1ML VIAL SC SCH ×3 (00:14→14:07)
[2022-03-25] MEDS: hydrALAZINE HCL 20 MG/ML VL IV PRN ×2 (01:46→12:27)
[2022-03-25] MEDS: PIPERACILLIN-TAZOB 2.25GM 50 ML IV SCH ×2 (02:16→12:59)
[2022-03-25] MEDS: ONDANSETRON HCL 4 MG/2 ML VIAL IV PRN (04:31)
[2022-03-25] MEDS ORDERED: SODIUM CHL 0.9% 1000 ML BAG XX ONE (07:00)
[2022-03-25] MEDS ORDERED: NIFEdipine ER 30 MG TAB PO SCH (10:00)
[2022-03-25] MEDS: ASCORBIC ACID 500 MG TAB PO SCH (10:19)
[2022-03-25] MEDS: PANTOPRAZOLE 40 MG TAB PO SCH (10:20)
[2022-03-25] MEDS ORDERED: DOXY100C2 PO (11:32)
[2022-03-25] MEDS ORDERED: NIFE1TAB31 PO (11:32)
[2022-03-25] MEDS ORDERED: METO-158 PO (11:32)
[2022-03-25] MEDS: ATORVASTATIN 20 MG TAB PO SCH (12:59)
[2022-03-25] MEDS ORDERED: EPOETIN ALFA-EPBX 10,000 UNIT/1ML VIAL SC ONE (21:00)
== END 2022-03-25 18:22 | disposition home health service (06) | DRG 193 ==
LOC: ER 07:32 → UNDOADMIN 13:56 → OVERFLOW 13:56 → TELE 14:01 → TELE-CENTR 03-23 17:03
PROVIDERS: ADMIT Internal Medicine; ATTEND Internal Medicine
PROC: 05HB33Z Insertion of Infusion Device into Right Basilic Vein, Percutaneous Approach (ICD-10-PCS; principal; 2022-03-21)
PROC: B54MZZA Ultrasonography of Right Upper Extremity Veins, Guidance (ICD-10-PCS; 2022-03-21)
PROC: 5A1D70Z Performance of Urinary Filtration, Intermittent, Less than 6 Hours Per Day (ICD-10-PCS; 2022-03-24)
PROC: 5A1D70Z Performance of Urinary Filtration, Intermittent, Less than 6 Hours Per Day (ICD-10-PCS; 2022-03-25)
DX: J18.9 Pneumonia, unspecified organism (principal); N18.6 End stage renal disease; I13.2 Hypertensive heart and chronic kidney disease with heart failure and with stage 5 chronic kidney disease, or end stage renal disease; I16.1 Hypertensive emergency; I50.30 Unspecified diastolic (congestive) heart failure; D63.1 Anemia in chronic kidney disease; E11.22 Type 2 diabetes mellitus with diabetic chronic kidney disease; Z20.822 Contact with and (suspected) exposure to COVID-19; E11.40 Type 2 diabetes mellitus with diabetic neuropathy, unspecified; E11.51 Type 2 diabetes mellitus with diabetic peripheral angiopathy without gangrene; E78.00 Pure hypercholesterolemia, unspecified; I49.5 Sick sinus syndrome; E78.5 Hyperlipidemia, unspecified; K21.9 Gastro-esophageal reflux disease without esophagitis; L08.9 Local infection of the skin and subcutaneous tissue, unspecified; Z99.2 Dependence on renal dialysis; Z98.62 Peripheral vascular angioplasty status; Z83.3 Family history of diabetes mellitus; Z82.49 Family history of ischemic heart disease and other diseases of the circulatory system; Z90.49 Acquired absence of other specified parts of digestive tract; Z88.5 Allergy status to narcotic agent
CPT/HCPCS: 36415; 71045; 80048; 80053; 80069; 80202; 82728; 82962; 83605; 84100; 84484; 85025; 85610; 85730; 87040; 87081; 87340; 87426; 90935; 93005; 96365; 96367; 96375; G0378; J1815; J2405; J2543; J7060

== ENCOUNTER 2022-05-04 04:07 | Inpatient (IN) | payer MEDICARE, MEDICAID ==
[~2022-05-04] VITALS: Ht 162.6 cm; Wt 86.5 kg
[~2022-05-04 04:07] MED LIST changes: +NIFE1TAB31 PO
[2022-05-04] MEDS ORDERED: DONNATAL 5ml ORAL Elix (BELLADONNA ALK-PHENOBARB) PO ONE (04:45)
[2022-05-04] MEDS ORDERED: ALUM & MAG HYDROX-SIMETH LIQ(MAALOX) 30 ML PO ONE (04:45)
[2022-05-04] MEDS ORDERED: MORPHINE SULFATE 4 MG/ML SYR/VIAL IV ONE (04:45)
[2022-05-04] MEDS ORDERED: ONDANSETRON HCL 4 MG/2 ML VIAL IV ONE (04:45)
[2022-05-04] MEDS ORDERED: LIDOCAINE VISCOUS 2% 15ML UD PO ONE (04:45)
[2022-05-04 05:05] LABS: Hematocrit 31.4 % (36.0-46.0); Hemoglobin 10.4 g/dL (12.2-16.2); Mean Corpuscular Hemoglobin 30.8 pg (28.0-32.0); Mean Corpuscular Hgb Conc. 33.1 g/dL (32.0-36.0); Mean Corpuscular Volume 93.1 fL (80.0-100.0); Red Blood Cells 3.37 10^6/uL (4.0-5.20); Red Cell Distribution Width 15.4 % (11.8-14.3); White Blood Cell 8.2 10^3/uL (4.4-10.8)
[2022-05-04 05:17] LABS: Albumin 3.3 g/dL (3.4-5.0); BUN/Creatinine Ratio 8.2; Calcium 8.7 mg/dL (8.5-10.1); Potassium 5.1 mmol/L (3.5-5.1)
[2022-05-04 05:18] LABS: Basophils % (manual) 0 (0.0-2.0); Blast Cells 0; Metamyelocytes % 0; Myelocytes % 0; Promyelocytes % 0; Reactive Lymphocytes 0
[2022-05-04 05:20] LABS: Bilirubin, Total 1.8 mg/dL (0.2-1.0)
[2022-05-04 05:36] LABS: INR 0.97 (0.9-1.15); Partial Thromboplastin Time 30.7 sec (24.6-33.4)
[2022-05-04 06:49] LABS: Band Neutrophils % (manual) 16; Eosinophils % (manual) 1 (0-7); Lymphocytes % (manual) 10 (10.0-50.0); Monocytes % (manual) 5 (0-12)
[2022-05-04] MEDS ORDERED: FAMOTIDINE (10MG/ML) 2ML VL IV ONE (07:30)
[2022-05-04] MEDS ORDERED: ACETAMINOPHEN 325 MG TAB PO PRN (15:30)
[2022-05-04] MEDS ORDERED: DEXTROSE (50%) 50ML SYRG IV PRN (15:30)
[2022-05-04] MEDS ORDERED: HYDROcodone-ACET 5/325MG TAB PO PRN (15:30)
[2022-05-04] MEDS ORDERED: DOCUSATE SOD 100 MG CAP PO PRN (15:30)
[2022-05-04] MEDS ORDERED: MORPHINE SULFATE INJ 2 MG/ml SYRG IV PRN (15:30)
[2022-05-04] MEDS ORDERED: NITROGLYCERIN 0.4 MG SL TAB SL PRN (15:30)
[2022-05-04] MEDS: ACCU-CHEK COMFORT CURVE STRIP VI SCH ×2 (17:00→23:58)
[2022-05-04] MEDS: InsuLIN REG 1unit/0.01ml Soln (100units/ml) SC SCH (17:00)
[2022-05-04] MEDS: SUCRALFATE 1 GM TAB PO SCH ×2 (20:09→23:13)
[2022-05-04] MEDS: METOPROLOL TARTRATE 50 MG TAB PO SCH (23:13)
[2022-05-05] VITALS (7 sets, daily range): BP systolic 127–200; BP diastolic 48–78
[2022-05-05] MEDS: InsuLIN REG 1unit/0.01ml Soln (100units/ml) SC SCH ×5 (00:11→21:28)
[2022-05-05] MEDS ORDERED: NIFEdipine 10 MG CAP PO ONE ×2 (01:00→01:15)
[2022-05-05] MEDS: ONDANSETRON HCL 4 MG/2 ML VIAL IV PRN ×4 (01:46→13:27)
[2022-05-05 05:15] LABS: Basophils # (auto) 0.1 10 ^3/uL (0-0.2); Eosinophils # (auto) 0.1 10 ^3/uL (0-0.8); Eosinophils % (auto) 1.5 % (0.0-7.0); Hematocrit 29.8 % (36.0-46.0); Hemoglobin 9.9 g/dL (12.2-16.2); Lymphocytes % (auto) 13.6 % (10.0-50.0); Mean Corpuscular Hemoglobin 30.9 pg (28.0-32.0); Mean Corpuscular Hgb Conc. 33.3 g/dL (32.0-36.0); Monocytes # (auto) 0.5 10 ^3/uL (0-1.3); Monocytes % (auto) 6.3 % (0.0-12.0); Neutrophils % (auto) 77.6 % (37.0-80.0); Nucleated Red Blood Cells % 0.1 %; Red Blood Cells 3.21 10^6/uL (4.0-5.20); Red Cell Distribution Width 15.5 % (11.8-14.3); White Blood Cell 7.7 10^3/uL (4.4-10.8)
[2022-05-05 05:32] LABS: Albumin 3.2 g/dL (3.4-5.0); Calcium 8.5 mg/dL (8.5-10.1); Potassium 5.5 mmol/L (3.5-5.1)
[2022-05-05 05:37] LABS: BUN/Creatinine Ratio 8.6; Bilirubin, Total 1.4 mg/dL (0.2-1.0); Total Protein 8.1 g/dL (6.4-8.2)
[2022-05-05] MEDS: SUCRALFATE 1 GM TAB PO SCH ×4 (06:23→21:27)
[2022-05-05] MEDS: ACCU-CHEK COMFORT CURVE STRIP VI SCH ×4 (06:23→21:28)
[2022-05-05] MEDS ORDERED: LISI20TA28 PO (06:34)
[2022-05-05] MEDS ORDERED: SODIUM CHL 0.9% 1000 ML BAG XX ONE (07:00)
[2022-05-05] MEDS: amLODIPine BESYLATE 5 MG TAB PO SCH (09:58)
[2022-05-05] MEDS: METOPROLOL TARTRATE 50 MG TAB PO SCH ×2 (09:58→21:27)
[2022-05-05] MEDS ORDERED: PANTOPRAZOLE 40 MG/10 ML VIAL INJ IV SCH (10:00)
[2022-05-05] MEDS ORDERED: ATORVASTATIN 20 MG TAB PO SCH (10:00)
[2022-05-05] MEDS ORDERED: diphenhdrAMINE HCL 50 MG/1 ML VL IV ONE (19:30)
[2022-05-05] MEDS: hydrALAZINE HCL 20 MG/ML VL IV PRN (19:30)
[2022-05-05] MEDS ORDERED: EPOETIN ALFA-EPBX 10,000 UNIT/1ML VIAL SC ONE (21:00)
[2022-05-06] VITALS (7 sets, daily range): BP systolic 145–179; BP diastolic 45–61
[2022-05-06] MEDS: hydrALAZINE HCL 20 MG/ML VL IV PRN ×3 (01:40→22:53)
[2022-05-06 03:50] LABS: Basophils # (auto) 0.1 10 ^3/uL (0-0.2); Basophils % (auto) 0.9 % (0.0-2.0); Eosinophils # (auto) 0.2 10 ^3/uL (0-0.8); Eosinophils % (auto) 2.9 % (0.0-7.0); Hematocrit 30.4 % (36.0-46.0); Hemoglobin 9.9 g/dL (12.2-16.2); Lymphocytes % (auto) 16.4 % (10.0-50.0); Mean Corpuscular Hgb Conc. 32.6 g/dL (32.0-36.0); Mean Corpuscular Volume 92.2 fL (80.0-100.0); Monocytes # (auto) 0.4 10 ^3/uL (0-1.3); Monocytes % (auto) 5.9 % (0.0-12.0); Neutrophils # (auto) 4.7 10 ^3/uL (1.6-8.6); Neutrophils % (auto) 73.9 % (37.0-80.0); Red Cell Distribution Width 15.6 % (11.8-14.3); White Blood Cell 6.3 10^3/uL (4.4-10.8)
[2022-05-06 03:58] LABS: INR 1.01 (0.9-1.15); Partial Thromboplastin Time 30.8 sec (24.6-33.4)
[2022-05-06 03:59] LABS: Albumin 2.9 g/dL (3.4-5.0); Calcium 8.5 mg/dL (8.5-10.1); Potassium 4.8 mmol/L (3.5-5.1)
[2022-05-06 04:03] LABS: BUN/Creatinine Ratio 6.1; Bilirubin, Total 1.5 mg/dL (0.2-1.0); Total Protein 7.5 g/dL (6.4-8.2)
[2022-05-06] MEDS: ACCU-CHEK COMFORT CURVE STRIP VI SCH ×4 (06:06→22:49)
[2022-05-06] MEDS: SUCRALFATE 1 GM TAB PO SCH ×4 (06:06→22:49)
[2022-05-06] MEDS: InsuLIN REG 1unit/0.01ml Soln (100units/ml) SC SCH ×4 (06:07→23:09)
[2022-05-06] MEDS ORDERED: FLUMAZENIL 0.1 MG/ML INJ 10ML MDV IV ONE (08:19)
[2022-05-06] MEDS ORDERED: NALOXONE HCL 0.4 MG/ML VIAL ONE (08:19)
[2022-05-06] MEDS ORDERED: LIDOCAINE VISCOUS 2% 15ML UD ONE (08:19)
[2022-05-06] MEDS ORDERED: SODIUM CHLORIDE LOCK 10 ML ONE (08:19)
[2022-05-06] MEDS ORDERED: fentaNYL CITRATE 100 MCG/2 ML VL ONE (08:20)
[2022-05-06] MEDS ORDERED: MIDAZOLAM HCL 5 MG/ML-1ML VIAL ONE (08:20)
[2022-05-06] MEDS ORDERED: diphenhdrAMINE HCL 50 MG/1 ML VL ONE (08:20)
[2022-05-06] MEDS: amLODIPine BESYLATE 5 MG TAB PO SCH (08:30)
[2022-05-06] MEDS: METOPROLOL TARTRATE 50 MG TAB PO SCH ×2 (08:30→22:49)
[2022-05-06] MEDS: PANTOPRAZOLE 40 MG TAB PO SCH ×2 (10:00→22:49)
[2022-05-07 05:00] VITALS: BP 164/57
[2022-05-07] MEDS ORDERED: diphenhdrAMINE HCL 25 MG CAP PO ONE (05:45)
[2022-05-07 06:26] LABS: % Iron Saturation 36.1 % (15-50)
[2022-05-07 06:27] LABS: Hematocrit 30.7 % (36.0-46.0); Hemoglobin 10.2 g/dL (12.2-16.2)
[2022-05-07] MEDS: ACCU-CHEK COMFORT CURVE STRIP VI SCH ×3 (06:32→17:00)
[2022-05-07] MEDS: SUCRALFATE 1 GM TAB PO SCH ×3 (06:32→18:21)
[2022-05-07] MEDS: InsuLIN REG 1unit/0.01ml Soln (100units/ml) SC SCH ×3 (06:32→18:21)
[2022-05-07] MEDS ORDERED: SODIUM CHL 0.9% 1000 ML BAG XX ONE (07:00)
[2022-05-07 08:54] VITALS: BP 186/69
[2022-05-07] MEDS: PANTOPRAZOLE 40 MG TAB PO SCH (08:59)
[2022-05-07] MEDS: METOPROLOL TARTRATE 50 MG TAB PO SCH (08:59)
[2022-05-07] MEDS: amLODIPine BESYLATE 5 MG TAB PO SCH (08:59)
[2022-05-07] MEDS: hydrALAZINE HCL 20 MG/ML VL IV PRN (12:47)
[2022-05-07 13:43] VITALS: BP 166/48
[2022-05-07 16:50] VITALS: BP 140/56
[2022-05-07] MEDS ORDERED: EPOETIN ALFA-EPBX 10,000 UNIT/1ML VIAL SC ONE (21:00)
== END 2022-05-07 18:57 | disposition home or self-care (01) | DRG 391 ==
LOC: ER 04:07 → TELE 15:35 → TELE-CENTR 05-05 05:17 → CENTRAL 05-05 15:41 → TELE-CENTR 05-07 06:02
PROVIDERS: ADMIT Nurse Practitioner Family; ATTEND Internal Medicine
PROC: 5A1D70Z Performance of Urinary Filtration, Intermittent, Less than 6 Hours Per Day (ICD-10-PCS; principal; 2022-05-05)
PROC: 0DB68ZX Excision of Stomach, Via Natural or Artificial Opening Endoscopic, Diagnostic (ICD-10-PCS; 2022-05-06)
PROC: 5A1D70Z Performance of Urinary Filtration, Intermittent, Less than 6 Hours Per Day (ICD-10-PCS; 2022-05-07)
DX: K31.9 Disease of stomach and duodenum, unspecified (principal); E43 Unspecified severe protein-calorie malnutrition; N18.6 End stage renal disease; I12.0 Hypertensive chronic kidney disease with stage 5 chronic kidney disease or end stage renal disease; N25.81 Secondary hyperparathyroidism of renal origin; R18.8 Other ascites; K29.70 Gastritis, unspecified, without bleeding; Z20.822 Contact with and (suspected) exposure to COVID-19; D63.1 Anemia in chronic kidney disease; E11.22 Type 2 diabetes mellitus with diabetic chronic kidney disease; E11.65 Type 2 diabetes mellitus with hyperglycemia; E78.5 Hyperlipidemia, unspecified; E87.5 Hyperkalemia; K57.90 Diverticulosis of intestine, part unspecified, without perforation or abscess without bleeding; Z87.11 Personal history of peptic ulcer disease; Z68.31 Body mass index [BMI] 31.0-31.9, adult; Z82.49 Family history of ischemic heart disease and other diseases of the circulatory system; Z83.3 Family history of diabetes mellitus; Z90.49 Acquired absence of other specified parts of digestive tract; Z99.2 Dependence on renal dialysis; Z88.5 Allergy status to narcotic agent; Z79.84 Long term (current) use of oral hypoglycemic drugs
CPT/HCPCS: 36415; 43239; 71045; 71250; 74176; 76705; 80053; 82728; 82962; 83036; 83540; 83550; 83615; 83690; 83970; 84484; 85007; 85014; 85018; 85025; 85027; 85045; 85610; 85730; 86850; 86900; 86901; 87426; 90935; 93005; 96374; 96375; C9113; G0378; J1815; J2250; J2405; J3490

== ENCOUNTER 2022-09-22 13:24 | Inpatient (IN) | payer MEDICARE, MEDICAID ==
[~2022-09-22] VITALS: Ht 162.6 cm; Wt 79.0 kg
[~2022-09-22 13:24] MED LIST changes: -AMLO-489 PO; -DOXY100C2 PO; +LISI20TA28 PO
[2022-09-22] MEDS ORDERED: PANTOPRAZOLE 40 MG/10 ML VIAL INJ IV ONE (13:45)
[2022-09-22] MEDS ORDERED: ONDANSETRON HCL 4 MG/2 ML VIAL IV ONE (13:45)
[2022-09-22] MEDS ORDERED: MORPHINE SULFATE 4 MG/ML SYR/VIAL IV ONE (13:45)
[2022-09-22 14:25] LABS: Basophils # (auto) 0.1 10 ^3/uL (0-0.2); Basophils % (auto) 0.5 % (0.0-2.0); Eosinophils # (auto) 0.1 10 ^3/uL (0-0.8); Eosinophils % (auto) 0.6 % (0.0-7.0); Hematocrit 35.1 % (36.0-46.0); Hemoglobin 11.3 g/dL (12.2-16.2); Lymphocytes # (auto) 0.7 10 ^3/uL (0.4-5.4); Lymphocytes % (auto) 6.2 % (10.0-50.0); Mean Corpuscular Hemoglobin 32.4 pg (28.0-32.0); Mean Corpuscular Volume 101.1 fL (80.0-100.0); Monocytes # (auto) 0.7 10 ^3/uL (0-1.3); Monocytes % (auto) 6.1 % (0.0-12.0); Neutrophils # (auto) 9.4 10 ^3/uL (1.6-8.6); Neutrophils % (auto) 86.6 % (37.0-80.0); Red Blood Cells 3.47 10^6/uL (4.0-5.20); Red Cell Distribution Width 14.3 % (11.8-14.3); White Blood Cell 10.9 10^3/uL (4.4-10.8)
[2022-09-22 14:50] LABS: Albumin 3.3 g/dL (3.4-5.0); Calcium 7.2 mg/dL (8.5-10.1); Potassium 4.1 mmol/L (3.5-5.1)
[2022-09-22 14:56] LABS: BUN/Creatinine Ratio 4.7 (10.0-20.0); Bilirubin, Total 2.9 mg/dL (0.2-1.0); Magnesium 2.2 mg/dL (1.6-2.6); Total Protein 8.8 g/dL (6.4-8.2)
[2022-09-22] MEDS ORDERED: PIPERACILLIN-TAZOB 3.375GM 100 ML IV ONE (15:45)
[2022-09-22] MEDS ORDERED: NITROGLYCERIN 0.4 MG SL TAB SL PRN (18:00)
[2022-09-22] MEDS ORDERED: ACETAMINOPHEN 325 MG TAB PO PRN (18:00)
[2022-09-22] MEDS ORDERED: MORPHINE SULFATE INJ 2 MG/ml SYRG IV PRN (18:00)
[2022-09-22] MEDS ORDERED: hydrALAZINE HCL 20 MG/ML VL IV PRN (19:00)
[2022-09-22] MEDS ORDERED: DEXTROSE (50%) 50ML SYRG IV PRN (19:30)
[2022-09-22 19:33] LABS: INR 1.57 (0.9-1.15); Partial Thromboplastin Time 43.4 sec (24.6-33.4)
[2022-09-22 19:38] LABS: Thyroid Stimulating Hormone 1.99 uIU/mL (0.358-3.74)
[2022-09-22] MEDS: SODIUM CHLORIDE 0.9% 1,000 ML IV SCH (20:29)
[2022-09-22] MEDS: ONDANSETRON HCL 4 MG/2 ML VIAL IV PRN (20:29)
[2022-09-22] MEDS: MORPHINE SULFATE INJ 2 MG/ml SYRG IV PRN (20:30)
[2022-09-22] MEDS: METOPROLOL TARTRATE 50 MG TAB PO SCH (22:00)
[2022-09-22] MEDS: ACCU-CHEK COMFORT CURVE STRIP VI SCH (22:00)
[2022-09-22] MEDS: NIFEdipine ER 30 MG TAB PO SCH (22:52)
[2022-09-22] MEDS: SUCRALFATE 1 GM TAB PO SCH (22:52)
[2022-09-22] MEDS: InsuLIN REG 1unit/0.01ml Soln (100units/ml) SC SCH (22:53)
[2022-09-22] MEDS: PIPERACILLIN-TAZOB 2.25GM 50 ML IV SCH (22:53)
[2022-09-23] MEDS: SODIUM CHLORIDE 0.9% 1,000 ML IV SCH (00:40)
[2022-09-23] MEDS: ONDANSETRON HCL 4 MG/2 ML VIAL IV PRN ×2 (03:27→12:58)
[2022-09-23] MEDS: MORPHINE SULFATE INJ 2 MG/ml SYRG IV PRN ×2 (03:27→12:58)
[2022-09-23 06:01] LABS: Basophils # (auto) 0.1 10 ^3/uL (0-0.2); Basophils % (auto) 0.7 % (0.0-2.0); Eosinophils # (auto) 0.1 10 ^3/uL (0-0.8); Hematocrit 27.4 % (36.0-46.0); Hemoglobin 9.4 g/dL (12.2-16.2); Lymphocytes # (auto) 1.6 10 ^3/uL (0.4-5.4); Lymphocytes % (auto) 15.9 % (10.0-50.0); Mean Corpuscular Hemoglobin 33.9 pg (28.0-32.0); Mean Corpuscular Hgb Conc. 34.3 g/dL (32.0-36.0); Mean Corpuscular Volume 98.8 fL (80.0-100.0); Monocytes # (auto) 0.7 10 ^3/uL (0-1.3); Monocytes % (auto) 6.8 % (0.0-12.0); Neutrophils # (auto) 7.8 10 ^3/uL (1.6-8.6); Neutrophils % (auto) 75.6 % (37.0-80.0); Nucleated Red Blood Cells % 0.1 %; Red Blood Cells 2.77 10^6/uL (4.0-5.20); Red Cell Distribution Width 13.6 % (11.8-14.3); White Blood Cell 10.3 10^3/uL (4.4-10.8)
[2022-09-23 06:04] LABS: INR 1.7 (0.9-1.15); Partial Thromboplastin Time 49.2 sec (24.6-33.4)
[2022-09-23 06:15] LABS: Albumin 2.5 g/dL (3.4-5.0); BUN/Creatinine Ratio 5.2 (10.0-20.0); Calcium 7.1 mg/dL (8.5-10.1); Potassium 4.1 mmol/L (3.5-5.1)
[2022-09-23 06:18] LABS: Bilirubin, Total 2.2 mg/dL (0.2-1.0); Total Protein 7.1 g/dL (6.4-8.2)
[2022-09-23] MEDS: ACCU-CHEK COMFORT CURVE STRIP VI SCH ×4 (06:34→22:00)
[2022-09-23] MEDS: InsuLIN REG 1unit/0.01ml Soln (100units/ml) SC SCH ×3 (06:34→18:25)
[2022-09-23] MEDS: SUCRALFATE 1 GM TAB PO SCH ×3 (06:39→18:00)
[2022-09-23] MEDS ORDERED: phytonadione 5 MG in SODIUM CHL 0.9% 50 ML IV ONE (08:00)
[2022-09-23] MEDS: PHYTONADIONE (VIT K)10 MG/ML 1ML VIAL SUBCUT ONE ×2 (08:59→09:01)
[2022-09-23] MEDS ORDERED: LISINOPRIL 20 MG TAB PO SCH (10:00)
[2022-09-23] MEDS: METOPROLOL TARTRATE 50 MG TAB PO SCH ×2 (10:00→22:00)
[2022-09-23] MEDS: PANTOPRAZOLE 40 MG/10 ML VIAL INJ IV SCH (10:39)
[2022-09-23] MEDS: amLODIPine BESYLATE 5 MG TAB PO SCH (10:42)
[2022-09-23] MEDS: PIPERACILLIN-TAZOB 2.25GM 50 ML IV SCH (10:43)
[2022-09-23] MEDS: NIFEdipine ER 30 MG TAB PO SCH ×2 (10:45→22:00)
[2022-09-23] MEDS: ATORVASTATIN 20 MG TAB PO SCH (10:46)
[2022-09-24] MEDS: SUCRALFATE 1 GM TAB PO SCH ×5 (01:47→22:11)
[2022-09-24] MEDS: InsuLIN REG 1unit/0.01ml Soln (100units/ml) SC SCH ×5 (01:48→22:13)
[2022-09-24] MEDS: PIPERACILLIN-TAZOB 2.25GM 50 ML IV SCH ×3 (01:48→22:12)
[2022-09-24 05:31] LABS: Hematocrit 27.2 % (36.0-46.0); Hemoglobin 9.3 g/dL (12.2-16.2)
[2022-09-24 05:48] LABS: INR 1.17 (0.9-1.15); Partial Thromboplastin Time 43.9 sec (24.6-33.4)
[2022-09-24 05:51] LABS: % Iron Saturation 36.5 % (15-50)
[2022-09-24] MEDS: ACCU-CHEK COMFORT CURVE STRIP VI SCH ×4 (06:56→22:15)
[2022-09-24] MEDS ORDERED: SODIUM CHL 0.9% 1000 ML BAG XX ONE (07:00)
[2022-09-24 08:15] LABS: BUN/Creatinine Ratio 5.6 (10.0-20.0); Potassium 4.5 mmol/L (3.5-5.1)
[2022-09-24] MEDS ORDERED: IOHEXOL 300 MG/ML 100ML BOTTLE IJ ONE (09:28)
[2022-09-24] MEDS ORDERED: OMNIPAQUE ORAL SOLN 500ml 12mg/ml PO ONE (09:28)
[2022-09-24] MEDS: NIFEdipine ER 30 MG TAB PO SCH ×3 (10:00→22:11)
[2022-09-24] MEDS: METOPROLOL TARTRATE 50 MG TAB PO SCH ×2 (10:00→22:12)
[2022-09-24] MEDS: amLODIPine BESYLATE 5 MG TAB PO SCH ×2 (10:00→10:13)
[2022-09-24] MEDS: ATORVASTATIN 20 MG TAB PO SCH ×2 (10:14→15:24)
[2022-09-24] MEDS: PANTOPRAZOLE 40 MG/10 ML VIAL INJ IV SCH (10:14)
[2022-09-24 13:26] LABS: Hepatitis A Ab IgM Negative; Hepatitis B Core IgM Negative; Hepatitis C Antibody Negative (Negative)
[2022-09-24 14:01] LABS: Hepatitis A Ab IgM Negative
[2022-09-24 14:02] LABS: Hepatitis B Core IgM Negative; Hepatitis C Antibody Negative (Negative)
[2022-09-24] MEDS ORDERED: PIPERACILLIN-TAZOB 0.75 GM in D5W 5% 50 ML IV SCH (18:00)
[2022-09-24] MEDS ORDERED: EPOETIN ALFA-EPBX 10,000 UNIT/1ML VIAL SC ONE (21:00)
[2022-09-24] MEDS: DAKINS QUARTER STR 0.125% (NaHypochlorite) 473 ML TOPICAL SOL TOP SCH (22:00)
[2022-09-25] MEDS: ONDANSETRON HCL 4 MG/2 ML VIAL IV PRN (00:37)
[2022-09-25] MEDS: MORPHINE SULFATE INJ 2 MG/ml SYRG IV PRN ×2 (00:38→22:34)
[2022-09-25 06:44] LABS: Calcium 7.4 mg/dL (8.5-10.1); Potassium 4.6 mmol/L (3.5-5.1)
[2022-09-25 06:48] LABS: Phosphorus 4.3 mg/dL (2.5-4.90)
[2022-09-25] MEDS: InsuLIN REG 1unit/0.01ml Soln (100units/ml) SC SCH ×4 (06:49→22:30)
[2022-09-25] MEDS: SUCRALFATE 1 GM TAB PO SCH ×4 (06:53→22:29)
[2022-09-25] MEDS: ACCU-CHEK COMFORT CURVE STRIP VI SCH ×4 (06:55→22:31)
[2022-09-25 07:58] LABS: Basophils # (auto) 0.1 10 ^3/uL (0-0.2); Basophils % (auto) 0.9 % (0.0-2.0); Eosinophils # (auto) 0.3 10 ^3/uL (0-0.8); Eosinophils % (auto) 3.8 % (0.0-7.0); Hematocrit 28.8 % (36.0-46.0); Hemoglobin 9.9 g/dL (12.2-16.2); Lymphocytes # (auto) 1.1 10 ^3/uL (0.4-5.4); Mean Corpuscular Hemoglobin 33.6 pg (28.0-32.0); Mean Corpuscular Hgb Conc. 34.2 g/dL (32.0-36.0); Mean Corpuscular Volume 98.1 fL (80.0-100.0); Monocytes # (auto) 0.5 10 ^3/uL (0-1.3); Monocytes % (auto) 7.2 % (0.0-12.0); Neutrophils # (auto) 4.9 10 ^3/uL (1.6-8.6); Neutrophils % (auto) 72.1 % (37.0-80.0); Nucleated Red Blood Cells % 0.1 %; Red Blood Cells 2.94 10^6/uL (4.0-5.20); Red Cell Distribution Width 13.5 % (11.8-14.3); White Blood Cell 6.8 10^3/uL (4.4-10.8)
[2022-09-25] MEDS: PANTOPRAZOLE 40 MG/10 ML VIAL INJ IV SCH (09:33)
[2022-09-25] MEDS: PIPERACILLIN-TAZOB 2.25GM 50 ML IV SCH ×2 (09:33→22:29)
[2022-09-25] MEDS: ATORVASTATIN 20 MG TAB PO SCH (09:54)
[2022-09-25] MEDS: NIFEdipine ER 30 MG TAB PO SCH ×2 (09:54→22:30)
[2022-09-25] MEDS: amLODIPine BESYLATE 5 MG TAB PO SCH (09:54)
[2022-09-25] MEDS: BUMETANIDE 1 MG TAB PO SCH ×2 (11:06→18:23)
[2022-09-25] MEDS: metOLazone 5 MG TAB PO SCH (11:07)
[2022-09-25] MEDS: METOPROLOL TARTRATE 50 MG TAB PO SCH ×2 (11:07→22:34)
[2022-09-25] MEDS: DAKINS QUARTER STR 0.125% (NaHypochlorite) 473 ML TOPICAL SOL TOP SCH ×2 (11:46→22:35)
[2022-09-26] MEDS: MORPHINE SULFATE INJ 2 MG/ml SYRG IV PRN (04:49)
[2022-09-26 05:49] LABS: Basophils # (auto) 0.1 10 ^3/uL (0-0.2); Basophils % (auto) 1.2 % (0.0-2.0); Eosinophils # (auto) 0.3 10 ^3/uL (0-0.8); Eosinophils % (auto) 4.1 % (0.0-7.0); Hematocrit 29.6 % (36.0-46.0); Hemoglobin 10.1 g/dL (12.2-16.2); Lymphocytes # (auto) 1.6 10 ^3/uL (0.4-5.4); Lymphocytes % (auto) 23.8 % (10.0-50.0); Mean Corpuscular Hemoglobin 33.6 pg (28.0-32.0); Mean Corpuscular Hgb Conc. 34.1 g/dL (32.0-36.0); Mean Corpuscular Volume 98.5 fL (80.0-100.0); Monocytes # (auto) 0.5 10 ^3/uL (0-1.3); Monocytes % (auto) 7.1 % (0.0-12.0); Neutrophils # (auto) 4.3 10 ^3/uL (1.6-8.6); Neutrophils % (auto) 63.8 % (37.0-80.0); Nucleated Red Blood Cells % 0.1 %; Red Cell Distribution Width 13.2 % (11.8-14.3); White Blood Cell 6.7 10^3/uL (4.4-10.8)
[2022-09-26 06:11] LABS: Potassium 4.5 mmol/L (3.5-5.1)
[2022-09-26] MEDS: ACCU-CHEK COMFORT CURVE STRIP VI SCH (06:16)
[2022-09-26] MEDS: InsuLIN REG 1unit/0.01ml Soln (100units/ml) SC SCH (06:16)
[2022-09-26] MEDS: BUMETANIDE 1 MG TAB PO SCH (06:16)
[2022-09-26 06:23] LABS: BUN/Creatinine Ratio 4.7 (10.0-20.0); Calcium 7.5 mg/dL (8.5-10.1)
[2022-09-26] MEDS: SUCRALFATE 1 GM TAB PO SCH (06:24)
[2022-09-26] MEDS ORDERED: SODIUM CHL 0.9% 1000 ML BAG XX ONE (07:00)
[2022-09-26] MEDS: PANTOPRAZOLE 40 MG/10 ML VIAL INJ IV SCH (10:44)
[2022-09-26] MEDS: PIPERACILLIN-TAZOB 2.25GM 50 ML IV SCH (10:46)
[2022-09-26] MEDS: ATORVASTATIN 20 MG TAB PO SCH (10:46)
[2022-09-26] MEDS: METOPROLOL TARTRATE 50 MG TAB PO SCH (10:47)
[2022-09-26] MEDS: amLODIPine BESYLATE 5 MG TAB PO SCH (10:48)
[2022-09-26] MEDS: NIFEdipine ER 30 MG TAB PO SCH (10:48)
[2022-09-26] MEDS: metOLazone 5 MG TAB PO SCH (10:49)
[2022-09-26] MEDS: DAKINS QUARTER STR 0.125% (NaHypochlorite) 473 ML TOPICAL SOL TOP SCH (10:49)
[2022-09-26] MEDS ORDERED: METR500T PO (11:26)
[2022-09-26] MEDS ORDERED: LEVO500T31 PO (11:26)
[2022-09-26] MEDS ORDERED: LACT10PA2 PO (11:27)
[2022-09-26 11:49] VITALS: BP 146/67
[2022-09-26] MEDS ORDERED: LACTULOSE 20Gm/30ML SOLN PO SCH (12:00)
[2022-09-26] MEDS ORDERED: EPOETIN ALFA-EPBX 10,000 UNIT/1ML VIAL SC ONE (21:00)
== END 2022-09-26 11:45 | disposition home or self-care (01) | DRG 871 ==
LOC: ER 13:24 → TELE 18:25
PROVIDERS: ADMIT Nurse Practitioner Family; ATTEND Family Medicine
PROC: 5A1D70Z Performance of Urinary Filtration, Intermittent, Less than 6 Hours Per Day (ICD-10-PCS; principal; 2022-09-24)
DX: A41.9 Sepsis, unspecified organism (principal); E43 Unspecified severe protein-calorie malnutrition; N18.6 End stage renal disease; R65.21 Severe sepsis with septic shock; K35.80 Unspecified acute appendicitis; D68.9 Coagulation defect, unspecified; I12.0 Hypertensive chronic kidney disease with stage 5 chronic kidney disease or end stage renal disease; Z20.822 Contact with and (suspected) exposure to COVID-19; D63.1 Anemia in chronic kidney disease; I25.10 Atherosclerotic heart disease of native coronary artery without angina pectoris; K74.60 Unspecified cirrhosis of liver; K21.9 Gastro-esophageal reflux disease without esophagitis; E11.22 Type 2 diabetes mellitus with diabetic chronic kidney disease; E88.09 Other disorders of plasma-protein metabolism, not elsewhere classified; E11.65 Type 2 diabetes mellitus with hyperglycemia; E78.00 Pure hypercholesterolemia, unspecified; Z95.0 Presence of cardiac pacemaker; Z99.2 Dependence on renal dialysis; Z68.29 Body mass index [BMI] 29.0-29.9, adult; Z87.11 Personal history of peptic ulcer disease; Z79.899 Other long term (current) drug therapy; Z80.9 Family history of malignant neoplasm, unspecified; Z82.49 Family history of ischemic heart disease and other diseases of the circulatory system; Z83.3 Family history of diabetes mellitus; Z90.49 Acquired absence of other specified parts of digestive tract; Z95.5 Presence of coronary angioplasty implant and graft; Z88.5 Allergy status to narcotic agent
CPT/HCPCS: 36415; 71045; 74176; 74177; 76705; 80048; 80053; 80074; 82140; 82728; 82962; 83036; 83540; 83550; 83615; 83690; 83735; 84100; 84443; 85014; 85018; 85025; 85610; 85730; 86850; 86900; 86901; 87040; 87426; 90935; 93306; C9113; G0378; J1815; J2405; J2543; J3430